=== PATIENT | female | born 1965 | race Caucasian/White ===

== ENCOUNTER 2020-12-01 21:30 | Emergency (ER) | payer OTHER ==
[2020-12-02 02:07] LABS: HEMOGLOBIN 12.2 gm/dl (12.3-15.3); RED BLOOD COUNT 4.32 M/UL (4.00-5.10); WHITE BLOOD COUNT 6.8 K/UL (4.5-11.0)
[2020-12-02 02:27] LABS: BUN/CREATININE RATIO 14 (0-10)
== END 2020-12-02 03:55 | disposition home or self-care (01) ==
LOC: ER1 21:30
PROVIDERS: Emergency Medicine
DX: R51.9 Headache, unspecified (principal); R11.2 Nausea with vomiting, unspecified; Z88.8 Allergy status to other drugs, medicaments and biological substances
CPT/HCPCS: 80053; 83690; 85025; 96374; 96375; 99284; J1885; J2405